=== PATIENT | female | born 1985 | race Caucasian/White ===

== ENCOUNTER 2019-10-24 09:40 | Emergency (ER) | payer OTHER ==
[~2019-10-24] VITALS: Ht 157.5 cm; Wt 47.6 kg
--- NOTE | 2019-10-24 09:57 | NUR ---
ED Nurse Note: Pt injured L wrist 12/08 while hiking today 0800. Pt L wrist has slight welling ROM /. Tingling L wrist. Pt is alert and ox4, ambulatory. ERMD has seen patient.
[2019-10-24 09:59] VITALS: BP 112/68
[2019-10-24] MEDS ORDERED: HYDROcodone/Acetamin 5/325 tab ORAL ONE (10:00)
--- NOTE | 2019-10-24 10:04 | Emergency Room Report ---
History of Present Illness General Chief Complaint: Upper Extremity Injury Source: Patient Present Illness HPI Patient is a 34-year-old female presents after a fall. Patient had fall from standing while hiking. Reports having increased pain to the left wrist with difficulty with movement. Difficulty with pronation and supination. Injury occurred about 1 hour prior to arrival. [id number]. She states she works in a [employer]. Denies any other current locations of pain. Does report having some injury and discomfort to the middle of her forearm. She denies any loss of consciousness. 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 COVID-19 Screening: Negative COVID-19 COVID-19 Testing Source: 10/21 Patient History Past Medical History: see triage record Last Menstrual Period: 10/01 Now: No Reviewed Nursing Documentation: PMH: Agreed; PSxH: Agreed Nursing Documentation-PMH Past Medical History: No Stated History Review of Systems All Other Systems: negative except mentioned in HPI Physical Exam Vital Signs Date Time Temp Pulse Resp B/P (MAP) Pulse Ox O2 Delivery O2 Flow Rate FiO2 10/24/19 09:48 98.4 57 16 109/60 (76) 98 Room Air General Appearance: well appearing, no apparent distress, alert, GCS 15 Head: normocephalic, atraumatic ENT: hearing grossly normal, normal voice Neck: full range of motion, supple Respiratory: no respiratory distress, speaking full sentences Cardiovascular #1: normal inspection, no edema Musculoskeletal: normal inspection, gait/station normal Neurologic: alert, motor strength/tone normal, lead teacher III-XII nml as tested, oriented x3, normal gait Psychiatric: mood/affect normal Skin: no rash Medical Decision Making Diagnostic Impression: Primary Impression: Distal radius fracture, left Additional Impression: Hand abrasion ER Course Patient is a 34-year-old female presents after increased left-sided wrist pain. Differential diagnosis include was not limited to fracture, dislocation, sprain, among others. Patient's x-ray imaging showed nondisplaced distal radius fracture. Patient's abrasion was cleansed patient given pain medication. She is placed in a splint. Patient is to follow-up with orthopedics or hand surgery. Patient is to return if worse. She was given prescription for pain medications. Last Vital Signs Date Time Temp Pulse Resp B/P (MAP) Pulse Ox O2 Delivery O2 Flow Rate FiO2 10/24/19 09:48 98.4 57 16 109/60 (76) 98 Room Air Status: improved Disposition: HOME, SELF-CARE Condition: Stable Scripts Ibuprofen* (MOTRIN*) 600 Mg Tablet 600 MG ORAL Q8H PRN for FOR PAIN, #20 TAB 0 Refills Prov: Doc Sanchez MD 10/24/19 Doc Sanchez MD Oct 24, 2019 10:04
[2019-10-24] MEDS ORDERED: Lidocaine HCl 2% Jelly 6ml Tube TOPIC ONE ×2 (10:08→10:15)
[2019-10-24] MEDS ORDERED: NORCO 5-325 TA1 EAC1 ORAL ×2 (10:30→10:53)
[2019-10-24] MEDS ORDERED: IBUPROFEN600 M1 ORAL (10:30)
[2019-10-24] MEDS ORDERED: Bacitracin Oint UD TOPIC ONE ×2 (10:45→10:46)
--- NOTE | 2019-10-24 10:55 | NUR ---
ER DISCHARGE NOTE: Patient is cleared to be discharged per ERMD, pt is aox4, on room air, with stable vital signs. pt was given dc and prescription instructions, pt was able to verbalize understanding, pt id band removed. pt is able to ambulate with steady gait. pt took all belongings. Splint applied, all pulses present on L arm. Pt educated regarding f/u and splint care.
[2019-10-24 10:56] VITALS: BP 123/76
--- NOTE | 2019-10-24 11:11 | Diagnostic Imaging Report ---
EXAM: XR Left Wrist, 2 Views CLINICAL HISTORY: PAIN TECHNIQUE: Frontal and lateral views of the left wrist. COMPARISON: None FINDINGS: Bones/joints: Nondisplaced fracture of the distal left radial metaphysis. No dislocation. Soft tissues: Soft tissue swelling. IMPRESSION: Nondisplaced fracture of the distal left radial metaphysis.
--- NOTE | 2019-10-24 11:11 | Diagnostic Imaging Report ---
EXAM: XR Left Forearm, 2 Views CLINICAL HISTORY: PAIN TECHNIQUE: Frontal and lateral views of the left forearm. COMPARISON: None FINDINGS: Bones/joints: Nondisplaced fracture of the distal left radial metaphysis. No dislocation. Soft tissues: Soft tissue swelling in the distal left forearm. IMPRESSION: Nondisplaced fracture of the distal left radial metaphysis.
== END 2019-10-24 11:11 | disposition home or self-care (01) ==
LOC: EMR 10:04
DX: S52.502A Unspecified fracture of the lower end of left radius, initial encounter for closed fracture (principal); S60.519A Abrasion of unspecified hand, initial encounter; W19.XXXA Unspecified fall, initial encounter; Y92.9 Unspecified place or not applicable
CPT/HCPCS: 29125; 99284